=== PATIENT | female | born 1955 | race Caucasian/White ===

== ENCOUNTER → 2017-01-28 | Outpatient (CLI) | payer BC ==
[~2017-01-28] MED LIST: AMLO-110 PO; ASPEC81 PO; B CO PO; CALCITRIOL PO; CHOL1000 PO; CLTP PO; FERR325T51 PO; LUTE10TA PO; METO-452 PO; SEVE800T7 PO; SODI650T8 PO; VENL150C56 PO; [UNRECOGNIZED DRUG - OTHER] PO
--- NOTE | 2017-01-28 10:37 | DIAGNOSTIC IMAGING REPORT ---
MRA OF THE INTRACRANIAL CIRCULATION WITHOUT CONTRAST CLINICAL HISTORY: Cerebral aneurysm. COMPARISON STUDY: MRA a March 09, 2016. TECHNIQUE: Utilizing a 1.5 Nany magnet and 3-D [id number] technique, unenhanced MRA of the intracranial circulation was obtained. FINDINGS: The bilateral M1, M2, A1 and A2 segments are patent. A 3 mm outpouching arising from the left M1 segment is unchanged since prior exam. 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 No additional intracranial aneurysms are identified. As before, the left vertebral artery is ectatic. This is unchanged. The posterior circulation is intact. IMPRESSION: 1. No significant change since prior exam. 2. Stable dilatation of the left middle cerebral artery at the level of the trifurcation, measuring 5 mm. 3. Stable 3 mm outpouching arising from the left M1 segment. This could reflect a small stable aneurysm or ectatic branch. Electronically signed by: Sukhwinder Reyes M.D. 01/28/2017 10:35 AM Dictated Date/Time: 01/28/2017 10:28 AM
== END | disposition home or self-care (01) ==
LOC: C.MRI 08:09
PROVIDERS: ATTEND Transplant Surgery
DX: I67.1 Cerebral aneurysm, nonruptured (principal); N18.6 End stage renal disease

== ENCOUNTER → 2017-02-26 | Outpatient (CLI) | payer BC | END | disposition home or self-care (01) | LOC: C.PAPS 10:04 | PROVIDERS: ATTEND Obstetrics & Gynecology | DX: Z01.419 Encounter for gynecological examination (general) (routine) without abnormal findings (principal) ==

== ENCOUNTER → 2017-03-10 | Outpatient (CLI) | payer BC, OTHER ==
--- NOTE | 2017-03-10 16:03 | DIAGNOSTIC IMAGING REPORT ---
CHEST 2 VIEWS ROUTINE CLINICAL HISTORY: N18.6 AWAITING KIDNEY TRANSPLANT. COMPARISON STUDY: 09/24/2013 FINDINGS: The cardiac and mediastinal contours are normal. There is no evidence of focal pulmonary consolidation. There is no evidence of failure. No pleural effusions are visualized.[ IMPRESSION: No active disease in the chest. Electronically signed by: Rai Devine M.D. 03/10/2017 4:01 PM Dictated Date/Time: 03/10/2017 4:01 PM
--- NOTE | 2017-03-10 16:15 | DIAGNOSTIC IMAGING REPORT ---
ABDOMEN AND PELVIS CT WITHOUT CONTRAST CT DOSE: 413.67 mGy.cm HISTORY: Polycystic kidney disease. TECHNIQUE: Multiaxial CT images of the abdomen and pelvis were performed without contrast. COMPARISON STUDY: Abdomen and pelvis CT 03/24/2015. FINDINGS: The lung bases are essentially clear. No pneumoperitoneum. No pneumatosis. No suspicious lytic or blastic osseous lesions. There again noted an hepatic and renal lesions. The majority of these are hypodense. This is consistent with the patient's history of polycystic kidney disease. There are few scattered small hyperdense lesions within the kidneys which favor hyperdense cysts. The majority of the renal cysts have decreased in size resulting in decrease in size of the kidneys. Dominant right renal cyst measures 3.8 cm, previous measuring 5.0 cm. Dominant left renal cyst measures 3.9 cm, previous measuring 4.2 cm. No hydronephrosis. Some of these cystic lesions within the liver and kidneys demonstrate calcification. The unenhanced spleen, adrenal glands, and pancreas are unremarkable. No retroperitoneal lymphadenopathy. Small to moderate ascites is not significantly changed. There is a left lower quadrant peritoneal dialysis catheter which terminates within the left midabdomen. The uterus is surgically absent. The bladder is completely decompressed and not well visualized. Suboptimal evaluation for bowel pathology due to the lack of intravenous and oral contrast. However, there is no definite bowel wall thickening or obstruction. Colonic diverticulosis. IMPRESSION: 1. Above findings consistent with the patient's history of polycystic kidney disease. The majority of the renal cysts have slightly decreased in size resulting in overall decrease in size of the kidneys. Multiple hepatic cysts are not significantly changed. 2. Small to moderate ascites, unchanged. Left peritoneal dialysis catheter terminates in the left midabdomen. 3. Colonic diverticulosis. Electronically signed by: Jaswant Justice M.D. 03/10/2017 4:14 PM Dictated Date/Time: 03/10/2017 4:05 PM
== END | disposition home or self-care (01) ==
LOC: C.CTS 15:10
PROVIDERS: ATTEND Transplant Surgery
DX: N18.6 End stage renal disease (principal); K76.89 Other specified diseases of liver; R18.8 Other ascites; Z98.890 Other specified postprocedural states; K57.30 Diverticulosis of large intestine without perforation or abscess without bleeding

== ENCOUNTER → 2017-03-11 | Outpatient (CLI) | payer BC ==
--- NOTE | 2017-03-11 15:54 | MAMMOGRAPHY REPORT ---
BILATERAL DIGITAL SCREENING MAMMOGRAM TOMOSYNTHESIS WITH CAD: 03/11/2017 CLINICAL HISTORY: Routine screening. Patient has no complaints. TECHNIQUE: Breast tomosynthesis in addition to standard 2D mammography was performed. Current study was also evaluated with a Computer Aided Detection (CAD) system. COMPARISON: Comparison is made to exams dated: 03/07/2016 mammogram, 02/24/2015 mammogram, 12/01/2013 ma mmogram, 11/18/2012 mammogram, 09/26/2011 mammogram, and 07/12/2010 mammogram - [facility] nter. BREAST COMPOSITION: There are scattered areas of fibroglandular density in both breasts. FINDINGS: There is continued coarsening of a grouping of calcifications in the upper outer posterior left breast, suggesting benignity. No new suspicious mass, architectural distortion or cluster of mi crocalcifications is seen. IMPRESSION: ACR BI-RADS CATEGORY 1: NEGATIVE There is no mammographic evidence of malignancy. A 1 year screening mammogram is recommended. The pa tient will receive written notification of the results. Approximately 10% of breast cancers are not detected with mammography. A negative mammographic report should not delay biopsy if a clinically suggestive mass is present. Katt Jarrett M.D. ay/:03/11/2017 14:09:44 Accountant Certified Public: Maggie Olsen, [facility] letter sent: Normal 1/2 BI-RADS Code: ACR BI-RADS Category 1: Negative
== END ==
LOC: C.MAMM 13:10
PROVIDERS: ATTEND Internal Medicine
DX: Z12.31 Encounter for screening mammogram for malignant neoplasm of breast (principal)

== ENCOUNTER → 2017-06-02 | Outpatient (CLI) | payer BC ==
[~2017-06-02] MED LIST changes: -METO-452 PO; +METO1TAB66 PO
[2017-06-02 14:05] LABS: ALKALINE PHOSPHATASE 77 U/L (45-117); ALT/SGPT 43 U/L (12-78); AST/SGOT 24 U/L (15-37); BLOOD UREA NITROGEN 61 mg/dl (7-18); BUN/CREATININE RATIO 7.8 (10-20); CALCIUM 8.3 mg/dl (8.5-10.1); CARBON DIOXIDE 27 mmol/L (21-32); CHLORIDE 101 mmol/L (98-107); GLUCOSE 132 mg/dl (70-99); POTASSIUM 4.1 mmol/L (3.5-5.1); SODIUM 138 mmol/L (136-145)
== END | disposition home or self-care (01) ==
LOC: C.LABSPEC 12:51
PROVIDERS: ATTEND Internal Medicine
DX: N18.6 End stage renal disease (principal); I13.11 Hypertensive heart and chronic kidney disease without heart failure, with stage 5 chronic kidney disease, or end stage renal disease

== ENCOUNTER → 2017-06-30 | Outpatient (CLI) | payer BC ==
[2017-06-30 13:32] LABS: ALB/GLOB RATIO 0.8 (0.9-2); ALKALINE PHOSPHATASE 135 U/L (45-117); ALT/SGPT 22 U/L (12-78); AST/SGOT 19 U/L (15-37); BLOOD UREA NITROGEN 42 mg/dl (7-18); BUN/CREATININE RATIO 4.9 (10-20); CALCIUM 8.4 mg/dl (8.5-10.1); CARBON DIOXIDE 27 mmol/L (21-32); CHLORIDE 97 mmol/L (98-107); GLUCOSE 104 mg/dl (70-99); PHOSPHORUS 4.6 mg/dl (2.5-4.9); POTASSIUM 4.1 mmol/L (3.5-5.1); SODIUM 133 mmol/L (136-145)
== END | disposition home or self-care (01) ==
LOC: C.LABSPEC 12:18
PROVIDERS: ATTEND Internal Medicine
DX: R53.83 Other fatigue (principal); N18.6 End stage renal disease

== ENCOUNTER → 2017-09-19 | Outpatient (CLI) | payer BC ==
[~2017-09-19] MED LIST changes: -AMLO-110 PO; +AMLO5TAB3 PO; +ASPI325T39 PO; +CLON0.2T PO; +CLOT10TR2 MT; +CTP/1 PO; +FURO-85 PO; +FURO40TA3 PO; +HYDR-3419 PO; +INSU100I23 SQ; +LABE1TAB28 PO; +MAGNTAB4 PO; +METO-452 PO; -METO1TAB66 PO; +METO50TA16 PO; +MPRUDL PO; +MULT-506 PO; +MYC10 PO; +MYCO180T PO; +NVLG SQ; +NXM/40 PO; +POTTAB2 PO; +PRED-301 PO; +TACR0.5C3 PO; +TACR1CAP PO; +TACR1CAP5 PO; +VANC1SUS PO; +VLC450 PO
[2017-09-19 17:41] LABS: BASO % 0.6 %; BASO ABS # 0.05 K/uL (0-0.2); EOS % 1.1 %; HEMATOCRIT 34.1 % (37-47); IG# 0.05 K/uL (0.00-0.02); LYMPH % 3.3 %; MEAN CELL VOLUME 91.7 fL (80-100); MEAN CORPUSCULAR HEMOGLOBIN 29.6 pg (25-34); MEAN CORPUSCULAR HGB CONC 32.3 g/dl (32-36); MONO ABS # 0.18 K/uL (0.11-0.59); NEUT % 92.4 %; NEUT ABS # 8.41 K/uL (1.4-6.5); PLATELET COUNT 244 K/uL (130-400); RED CELL DISTRIBUTION WIDTH CV 18.7 % (11.5-14.5); RED CELL DISTRIBUTION WIDTH SD 61.5 fL (36.4-46.3); WHITE BLOOD COUNT 9.09 K/uL (4.8-10.8)
[2017-09-19 18:08] LABS: ALBUMIN 2.9 gm/dl (3.4-5.0); ALKALINE PHOSPHATASE 166 U/L (45-117); ALT/SGPT 26 U/L (12-78); AST/SGOT 20 U/L (15-37); BLOOD UREA NITROGEN 38 mg/dl (7-18); CALCIUM 7.9 mg/dl (8.5-10.1); CARBON DIOXIDE 18 mmol/L (21-32); GLUCOSE 227 mg/dl (70-99); PHOSPHORUS 3.2 mg/dl (2.5-4.9); POTASSIUM 4.7 mmol/L (3.5-5.1); SODIUM 135 mmol/L (136-145); TOTAL PROTEIN 5.7 gm/dl (6.4-8.2)
== END | disposition home or self-care (01) ==
LOC: C.LAB 16:57
PROVIDERS: ATTEND Internal Medicine
DX: I10 Essential (primary) hypertension (principal); Z94.0 Kidney transplant status; D64.9 Anemia, unspecified

== ENCOUNTER → 2017-09-20 | Outpatient (CLI) | payer BC ==
[2017-09-20 15:19] LABS: BLOOD UREA NITROGEN 41 mg/dl (7-18); CALCIUM 8.2 mg/dl (8.5-10.1); CARBON DIOXIDE 20 mmol/L (21-32); CREATININE 2.38 mg/dl (0.60-1.20); GLUCOSE 192 mg/dl (70-99); SODIUM 133 mmol/L (136-145)
== END | disposition home or self-care (01) ==
LOC: C.LABSPEC 12:34
PROVIDERS: ATTEND Internal Medicine
DX: I12.9 Hypertensive chronic kidney disease with stage 1 through stage 4 chronic kidney disease, or unspecified chronic kidney disease (principal); N18.9 Chronic kidney disease, unspecified; Z94.0 Kidney transplant status

== ENCOUNTER → 2017-11-04 | Day surgery (SDC) | payer BC, OTHER ==
[2017-10-31 15:40] VITALS: BMI 25.0
[~2017-11-04] VITALS: Ht 167.6 cm; Wt 70.5 kg
[~2017-11-04] MED LIST changes: -AMLO5TAB3 PO; -ASPEC81 PO; +ATROPINE SULFATE 0.1 MG/ML 5ML SYR IV PRN; -B CO PO; +BACITRACIN 50000 UNIT VIAL ONE; -CALCITRIOL PO; +CEFAZOLIN SOD 1 GM VIAL ONE; -CHOL1000 PO; -CLOT10TR2 MT; -CLTP PO; -CTP/1 PO; +EpHEDrine SULFATE INJ 50 MG/ML AMP IV PRN; +FENTANYL CITRATE INJ 50 MCG/1 ML 2 ML VIAL IV PRN; +FENTANYL CITRATE INJ 50 MCG/1 ML 2 ML VIAL ONE; -FERR325T51 PO; -FURO40TA3 PO; +HYDROCODONE/ACETAMIN 5/325MG TAB PO PRN; +HYDROmorphone INJ 0.5 MG/0.5 ML SYR IV PRN; -INSU100I23 SQ; -LABE1TAB28 PO; +LACTATED RINGER'S 1000ML 1,000 ML IV SCH; +LIDOCAINE HCL 1% 20 ML VIAL ONE; +LIDOCAINE HCL 2% 2 ML VIAL (20MG/ML) ONE; -MAGNTAB4 PO; -METO-452 PO; +MIDAZOLAM HCL 1 MG/ML 2ML VIAL ONE; +MoRPHine SULFATE 2 MG/ML CARP IV PRN; +ONDANSETRON INJ 2 MG/ML 2 ML VIAL IV PRN; +PHENYLEPHRINE 100MCG/ML 5ML SYR IV PRN; -POTTAB2 PO; +PROPOFOL IV EMULSION 10 MG/ML 20 ML VIAL IV ONE; -SEVE800T7 PO; -TACR1CAP PO; -TACR1CAP5 PO; -VANC1SUS PO; -[UNRECOGNIZED DRUG - OTHER] PO
[2017-11-04 05:55] VITALS: BP 166/98; PULSE 61; TEMP 37.3; O2SAT 99; Ht 167.6 cm; Wt 70.5 kg
--- NOTE | 2017-11-04 06:24 | History & Physical Bridge Note ---
H&P Re-Evaluation Bridge Note: I have examined the patient, reviewed the History & Physical and in the interval since the performance of the History & Physical I have noted the following changes of clinical significance: No changes noted at bedside all questions answered
--- NOTE | 2017-11-04 07:28 | Discharge Instructions ---
Discharge Instructions Date of Service Nov 04, 2017. Visit Reason for Visit: Poor Venous Access Discharge Discharge Diagnosis / Problem: A-port placement Discharge Goals Goal(s): Therapeutic intervention Activity Recommendations Activity Limitations: as noted below Shower/Bathe: tomorrow Anesthesia . Post Anesthesia Instructions: If you have had General Anesthesia or IV Sedation: * Do not drive today. * Resume driving when surgeon permits. * Do not make important decisions or sign legal documents today. * Call surgeon for: 1. Temperature elevations greater than 101 degrees F. 2. Uncontrollable pain. 3. Excessive bleeding. 4. Persistent nausea and vomiting. 5. Medication intolerance (nausea, vomiting or rash). * For nausea and vomiting use only clear liquids such as: tea, soda, bouillon until nausea subsides, then gradually increase diet as tolerated. * If you have any concerns or questions, call your surgeon's office. If physician is unavailable and it is an emergency, call 911 or go to the nearest emergency room. . Instructions / Follow-Up Instructions / Follow-Up Dr. Monique in 1-2 weeks as needed, call [phone] for any questions or concerns Diet Recommendations Recommended Home Diet: no limitations Pending Studies Studies pending at discharge: no Medical Emergencies . Who to Call and When: Medical Emergencies: If at any time you feel your situation is an emergency, please call 911 immediately. . Non-Emergent Contact Non-Emergency issues call your: Surgeon Call Non-Emergent contact if: you have a fever, temperature is above 101.5, your pain is not controlled, wound has increased redness, wound has increased pain . . "Provider Documentation" section prepared by Mian Nolan. . [place] Drug Monitoring Program Search Results: no issues identified
--- NOTE | 2017-11-04 07:46 | [facility] Post Operative Brief Note ---
Immediate Operative Summary Operative Date Nov 04, 2017. Pre-Operative Diagnosis Status Post Renal Transplant, Need for Frequent Intravenous Access Post-Operative Diagnosis Status Post Renal Transplant, Need for Frequent Intravenous Access Procedure(s) Performed Insertion of Infusaport Left Subclavian Surgeon Dr. Monique Supervisor Incising Surgeon(s) none Estimated Blood Loss 5 ml Findings Consistent with Post-Op Diagnosis Specimens none per surgeon Anesthesia Type MAC
--- NOTE | 2017-11-04 08:19 | DIAGNOSTIC IMAGING REPORT ---
CHEST ONE VIEW PORTABLE CLINICAL HISTORY: Port placement. COMPARISON STUDY: Chest radiograph March 10, 2017. FINDINGS: Note is made of interval placement of a left subclavian [id number]. Catheter tip projects over the cavoatrial junction. The catheter is intact and there is no pneumothorax. Lung volumes are diminished. There is no evidence for pulmonary edema. Cardiomediastinal silhouette is unremarkable. IMPRESSION: No pneumothorax following placement of a left subclavian [id number]. Electronically signed by: Sukhwinder Reyes M.D. 11/04/2017 8:17 AM Dictated Date/Time: 11/04/2017 8:16 AM
--- NOTE | 2017-11-04 08:33 | Anesthesiology Progress Note ---
Anesthesia Post Op Note Date & Time Nov 04, 2017 at 08:33 Vital Signs Pain Intensity: 0 Vital Signs Past 12 Hours Date Time Temp Pulse Resp B/P (MAP) Pulse Ox O2 Delivery O2 Flow Rate FiO2 11/04/17 08:27 74 18 11/04/17 08:27 77 18 96 11/04/17 08:26 138/94 11/04/17 08:22 67 17 95 11/04/17 08:22 66 17 11/04/17 08:21 138/78 11/04/17 08:17 64 16 95 11/04/17 08:17 64 16 11/04/17 08:16 128/81 11/04/17 08:12 70 21 11/04/17 08:12 70 21 97 11/04/17 08:11 146/84 11/04/17 08:11 146/84 11/04/17 08:10 67 15 97 11/04/17 08:10 67 15 97 11/04/17 08:10 67 15 11/04/17 08:10 67 15 11/04/17 08:06 151/83 11/04/17 08:06 151/83 11/04/17 08:05 71 18 11/04/17 08:05 71 18 11/04/17 08:05 70 18 96 11/04/17 08:05 70 18 96 11/04/17 08:01 148/86 11/04/17 08:01 148/86 11/04/17 08:00 65 15 11/04/17 08:00 65 15 97 11/04/17 08:00 65 15 97 11/04/17 08:00 36.8 64 18 135/78 (90) 95 Room Air 10 Oxymask 11/04/17 08:00 65 15 11/04/17 07:56 123/73 123/73 11/04/17 07:56 123/73 123/73 11/04/17 07:55 67 26 96 11/04/17 07:55 66 26 11/04/17 07:55 66 26 11/04/17 07:55 67 26 96 11/04/17 07:51 135/78 11/04/17 07:51 135/78 11/04/17 05:55 37.3 61 18 166/98 (120) 99 Room Air Notes Mental Status: alert / awake / arousable, participated in evaluation Pt Amnestic to Procedure: Yes Nausea / Vomiting: adequately controlled Pain: adequately controlled Airway Patency, RR, SpO2: stable & adequate BP & HR: stable & adequate Hydration State: stable & adequate Anesthetic Complications: no major complications apparent Awake, doing well, no complaints. VSS.
[2017-11-04 08:35] VITALS: BP 145/73; PULSE 71; TEMP 36.3; O2SAT 97
[2017-11-04 09:06] VITALS: BP 138/78; PULSE 79; O2SAT 96
[2017-11-04 09:28] VITALS: BP 134/73; PULSE 84; TEMP 36.5; O2SAT 97
--- NOTE | 2017-11-04 13:37 | OPERATIVE REPORT ---
DATE OF OPERATION: 11/04/2017 SURGEON: Gage Monique MD. PREOPERATIVE DIAGNOSIS: Lack of venous access, status post renal transplant. POSTOPERATIVE DIAGNOSIS: Same. PROCEDURE: MRI compatible port placed to the left subclavian. SUMMARY: The patient was brought into the operating room. A roll was placed underneath her shoulders. Systemic antibiotics was given. IV sedation was given so she was incoherent of what was going on as requested. Local anesthetic was used to infiltrate at the angle of the clavicle. The patient had significant edema in the subcutaneous tissue, we can appreciate it. We accessed the subclavian vein without any difficulty. Fluoroscopically positioned the guidewire in superior vena cava. At this point, we then made an incision about an inch and a half below the puncture site in the subclavian area and using more local anesthetic deep into the subcutaneous tissue. As stated, she had significant edema and the tissue was very frail due to her systemic steroids and renal state. We then done sufficient enough that we created an inferior pocket for the reservoir. We did not use the electrocautery underneath the flap. We did use it though at 25 just to get some bleeders which she tends to ooze quite easily. Once the pocket was created, we then tested the port in that area and appeared to be satisfactory. We at this point then worked on superiorly to dissect out underneath and placed the guidewire through the open incision. The patient was then placed in Trendelenburg position. We reimaged the guidewire which was in the superior vena cava right atrium. We then placed a 7-Swedish introducer when the patient was in Trendelenburg position and placed the catheter through the introducer peel away and on imaging we saw that the catheter was in the right atrial area. At this point, we measured on the skin edge and appeared to be about 25 cm. We then cut the catheter, placing the black bolster on it and then placed it on reservoir, secured a black bolster. We then placed the reservoir in the previously made pocket, suturing it ____. This was done with 3-0 nylon suture. The area was then checked for hemostasis and appeared satisfactory. There was no kinking in the system. We reimaged the whole system without any problem. We had aspirated and flushed prior to placing the reservoir in the pocket without any difficulty. We then closed the wound in multiple layers of 3-0 and 2-0 Dexon and 4-0 Monocryl. Prior to leaving the room, we reimaged the system. The catheter was in the superior vena cava right atrial area. We aspirated and flushed percutaneously without any difficulty. As stated, the patient bruised quite easily at the inferior flap where we had created the pocket for the reservoir. We did not denude a significant amount of fat, but it did have area of ecchymosis. Steri-Strips were applied, 2 x 2 and Op-Site applied. The procedure was tolerated well by the patient and was taken to recovery in good condition. I attest to the content of the Intraoperative Record and any orders documented therein. Any exception s are noted below.
== END | disposition home or self-care (01) ==
LOC: C.ACU 05:21
PROVIDERS: ATTEND Surgery
DX: Z45.2 Encounter for adjustment and management of vascular access device (principal); Z94.0 Kidney transplant status; N18.6 End stage renal disease; E11.22 Type 2 diabetes mellitus with diabetic chronic kidney disease; Z79.52 Long term (current) use of systemic steroids; I12.0 Hypertensive chronic kidney disease with stage 5 chronic kidney disease or end stage renal disease; Z86.711 Personal history of pulmonary embolism; F32.9 Major depressive disorder, single episode, unspecified; Z98.890 Other specified postprocedural states; Z88.1 Allergy status to other antibiotic agents; Z88.2 Allergy status to sulfonamides; Z90.89 Acquired absence of other organs; Z90.710 Acquired absence of both cervix and uterus; Z82.49 Family history of ischemic heart disease and other diseases of the circulatory system; Z82.71 Family history of polycystic kidney; Z83.518 Family history of other specified eye disorder; Z82.0 Family history of epilepsy and other diseases of the nervous system; Z84.1 Family history of disorders of kidney and ureter

== ENCOUNTER → 2017-12-05 | Outpatient (CLI) | payer OTHER ==
[~2017-12-05] MED LIST changes: -ATROPINE SULFATE 0.1 MG/ML 5ML SYR IV PRN; -BACITRACIN 50000 UNIT VIAL ONE; -CEFAZOLIN SOD 1 GM VIAL ONE; -EpHEDrine SULFATE INJ 50 MG/ML AMP IV PRN; -FENTANYL CITRATE INJ 50 MCG/1 ML 2 ML VIAL IV PRN; -FENTANYL CITRATE INJ 50 MCG/1 ML 2 ML VIAL ONE; -HYDR-3419 PO; -HYDROCODONE/ACETAMIN 5/325MG TAB PO PRN; -HYDROmorphone INJ 0.5 MG/0.5 ML SYR IV PRN; -LACTATED RINGER'S 1000ML 1,000 ML IV SCH; -LIDOCAINE HCL 1% 20 ML VIAL ONE; -LIDOCAINE HCL 2% 2 ML VIAL (20MG/ML) ONE; -MIDAZOLAM HCL 1 MG/ML 2ML VIAL ONE; -MoRPHine SULFATE 2 MG/ML CARP IV PRN; -ONDANSETRON INJ 2 MG/ML 2 ML VIAL IV PRN; -PHENYLEPHRINE 100MCG/ML 5ML SYR IV PRN; -PROPOFOL IV EMULSION 10 MG/ML 20 ML VIAL IV ONE
[2017-12-05 18:43] LABS: HEMOGLOBIN 11.1 g/dL (12.0-16.0); MEAN CELL VOLUME 88.2 fL (80-100); MEAN CORPUSCULAR HGB CONC 31.7 g/dl (32-36); MEAN PLATELET VOLUME 10.4 fL (7.4-10.4); PLATELET COUNT 255 K/uL (130-400); RED CELL DISTRIBUTION WIDTH SD 54.8 fL (36.4-46.3)
== END | disposition home or self-care (01) ==
LOC: C.LABSPEC 17:49
PROVIDERS: ATTEND Internal Medicine
DX: D72.819 Decreased white blood cell count, unspecified (principal)

== ENCOUNTER → 2017-12-07 | Outpatient (CLI) | payer OTHER ==
[2017-12-07 12:43] LABS: BASO % 1.2 %; BASO ABS # 0.04 K/uL (0-0.2); EOS % 3.5 %; EOS ABS # 0.12 K/uL (0-0.5); HEMATOCRIT 36.8 % (37-47); HEMOGLOBIN 11.2 g/dL (12.0-16.0); IG# 0.01 K/uL (0.00-0.02); LYMPH % 16.1 %; LYMPH ABS # 0.55 K/uL (1.2-3.4); MEAN CORPUSCULAR HEMOGLOBIN 26.8 pg (25-34); MEAN CORPUSCULAR HGB CONC 30.4 g/dl (32-36); MEAN PLATELET VOLUME 10.9 fL (7.4-10.4); MONO % 17.6 %; NEUT % 61.3 %; NEUT ABS # 2.09 K/uL (1.4-6.5); NUCLEATED RED BLOOD CELL ABS 0.02 K/uL (0-0); PLATELET COUNT 284 K/uL (130-400); RED CELL DISTRIBUTION WIDTH CV 16.6 % (11.5-14.5); RED CELL DISTRIBUTION WIDTH SD 54.4 fL (36.4-46.3); WHITE BLOOD COUNT 3.41 K/uL (4.8-10.8)
[2017-12-08 07:03] LABS: HEMOGLOBIN A1C 7.4 % (4.5-5.6)
== END | disposition home or self-care (01) ==
LOC: C.LABSPEC 10:03
PROVIDERS: ATTEND Internal Medicine
DX: D72.819 Decreased white blood cell count, unspecified (principal); R73.9 Hyperglycemia, unspecified

== ENCOUNTER → 2017-12-29 | Outpatient (CLI) | payer OTHER ==
[~2017-12-29] MED LIST changes: +ACETAMINOPHEN 325 MG TAB ONE; +CLOT10TR2 MT; +CTP/1 PO; +FURO40TA3 PO; +MAGNTAB4 PO; +POTTAB2 PO; +TACR1CAP5 PO; +VANC1SUS PO
[2017-12-29 10:24] LABS: BASO % 0.1 %; BASO ABS # 0.02 K/uL (0-0.2); EOS % 0.1 %; EOS ABS # 0.01 K/uL (0-0.5); HEMATOCRIT 34.1 % (37-47); HEMOGLOBIN 10.6 g/dL (12.0-16.0); IG# 0.05 K/uL (0.00-0.02); LYMPH % 2.9 %; LYMPH ABS # 0.42 K/uL (1.2-3.4); MEAN CELL VOLUME 85.3 fL (80-100); MEAN CORPUSCULAR HEMOGLOBIN 26.5 pg (25-34); MEAN CORPUSCULAR HGB CONC 31.1 g/dl (32-36); MEAN PLATELET VOLUME 10.7 fL (7.4-10.4); MONO % 7.6 %; MONO ABS # 1.09 K/uL (0.11-0.59); NEUT % 88.9 %; NEUT ABS # 12.66 K/uL (1.4-6.5); NUCLEATED RED BLOOD CELL ABS 0.02 K/uL (0-0); PLATELET COUNT 278 K/uL (130-400); RED CELL DISTRIBUTION WIDTH CV 15.8 % (11.5-14.5); RED CELL DISTRIBUTION WIDTH SD 49.9 fL (36.4-46.3); WHITE BLOOD COUNT 14.25 K/uL (4.8-10.8)
[2017-12-29 10:49] LABS: ALBUMIN 3.2 gm/dl (3.4-5.0); ALT/SGPT 32 U/L (12-78); AST/SGOT 17 U/L (15-37); BLOOD UREA NITROGEN 18 mg/dl (7-18); CALCIUM 9.8 mg/dl (8.5-10.1); CARBON DIOXIDE 20 mmol/L (21-32); CREATININE 1.01 mg/dl (0.60-1.20); GLUCOSE 197 mg/dl (70-99); POTASSIUM 4.4 mmol/L (3.5-5.1); SODIUM 133 mmol/L (136-145)
[2017-12-29 10:51] LABS: ALKALINE PHOSPHATASE 137 U/L (45-117); PHOSPHORUS 1.8 mg/dl (2.5-4.9); TOTAL PROTEIN 6.1 gm/dl (6.4-8.2)
--- NOTE | 2017-12-29 11:44 | DIAGNOSTIC IMAGING REPORT ---
CHEST 2 VIEWS ROUTINE CLINICAL HISTORY: FEVER,POST KIDNEY TRANSPLANT COMPARISON STUDY: Chest radiograph November 04, 2017. FINDINGS: A left subclavian [id number] in place. There is no pneumothorax. There are trace bilateral pleural effusions. There is no consolidation to suggest pneumonia. Pulmonary vascularity is normal. Cardiomediastinal silhouette is normal. There is suspected mild biapical scarring which is unchanged. IMPRESSION: 1. No consolidation to suggest pneumonia. 2. Trace bilateral pleural effusions. 3. No evidence for pulmonary edema. Electronically signed by: Sukhwinder Reyes M.D. 12/29/2017 11:43 AM Dictated Date/Time: 12/29/2017 11:40 AM
== END | disposition home or self-care (01) ==
LOC: C.RAD 09:32
PROVIDERS: ATTEND Internal Medicine
DX: R50.9 Fever, unspecified (principal); Z94.0 Kidney transplant status

== ENCOUNTER → 2018-01-25 | Outpatient (CLI) | payer OTHER ==
[~2018-01-25] MED LIST changes: -ACETAMINOPHEN 325 MG TAB ONE; -CLON0.2T PO; -FURO-85 PO; +LABE1TAB28 PO; -METO50TA16 PO; -MYC10 PO; -TACR0.5C3 PO; -VLC450 PO
[2018-01-25 11:22] LABS: BLOOD UREA NITROGEN 26 mg/dl (7-18); CALCIUM 9.1 mg/dl (8.5-10.1); CARBON DIOXIDE 21 mmol/L (21-32); CREATININE 1.14 mg/dl (0.60-1.20); GLUCOSE 126 mg/dl (70-99); POTASSIUM 4.5 mmol/L (3.5-5.1); SODIUM 141 mmol/L (136-145)
[2018-01-25 11:42] LABS: HEMOGLOBIN 9.4 g/dL (12.0-16.0); MEAN CELL VOLUME 81.2 fL (80-100); MEAN CORPUSCULAR HEMOGLOBIN 23.9 pg (25-34); MEAN CORPUSCULAR HGB CONC 29.4 g/dl (32-36); MEAN PLATELET VOLUME 9.7 fL (7.4-10.4); PLATELET COUNT 368 K/uL (130-400); RED CELL DISTRIBUTION WIDTH CV 16.9 % (11.5-14.5); RED CELL DISTRIBUTION WIDTH SD 50.9 fL (36.4-46.3); WHITE BLOOD COUNT 7.14 K/uL (4.8-10.8)
[2018-01-25 12:00] LABS: BASO % 0.6 %; BASO ABS # 0.04 K/uL (0-0.2); EOS % 1.5 %; EOS ABS # 0.11 K/uL (0-0.5); IG# 0.03 K/uL (0.00-0.02); LYMPH % 24.5 %; LYMPH ABS # 1.75 K/uL (1.2-3.4); MONO % 11.2 %; NEUT % 61.8 %; NEUT ABS # 4.41 K/uL (1.4-6.5)
== END | disposition home or self-care (01) ==
LOC: C.LABSPEC 12:50
PROVIDERS: ATTEND Internal Medicine
DX: E83.42 Hypomagnesemia (principal); D72.819 Decreased white blood cell count, unspecified; Z94.0 Kidney transplant status

== ENCOUNTER → 2018-01-27 | Outpatient (CLI) | payer OTHER ==
[2018-01-27 14:55] LABS: BASO % 0.6 %; BASO ABS # 0.04 K/uL (0-0.2); EOS % 0.9 %; EOS ABS # 0.06 K/uL (0-0.5); HEMATOCRIT 31.3 % (37-47); HEMOGLOBIN 9.3 g/dL (12.0-16.0); IG# 0.02 K/uL (0.00-0.02); LYMPH % 16.9 %; LYMPH ABS # 1.11 K/uL (1.2-3.4); MEAN CELL VOLUME 80.5 fL (80-100); MEAN CORPUSCULAR HEMOGLOBIN 23.9 pg (25-34); MEAN CORPUSCULAR HGB CONC 29.7 g/dl (32-36); MEAN PLATELET VOLUME 9.8 fL (7.4-10.4); MONO % 5.9 %; MONO ABS # 0.39 K/uL (0.11-0.59); NEUT % 75.4 %; NEUT ABS # 4.94 K/uL (1.4-6.5); PLATELET COUNT 419 K/uL (130-400); RED CELL DISTRIBUTION WIDTH CV 16.9 % (11.5-14.5); RED CELL DISTRIBUTION WIDTH SD 49.9 fL (36.4-46.3); WHITE BLOOD COUNT 6.56 K/uL (4.8-10.8)
[2018-01-27 15:16] LABS: BLOOD UREA NITROGEN 27 mg/dl (7-18); CALCIUM 8.8 mg/dl (8.5-10.1); CARBON DIOXIDE 20 mmol/L (21-32); CREATININE 1.12 mg/dl (0.60-1.20); GLUCOSE 129 mg/dl (70-99); POTASSIUM 4.8 mmol/L (3.5-5.1); SODIUM 138 mmol/L (136-145)
== END | disposition home or self-care (01) ==
LOC: C.LAB 14:11
PROVIDERS: ATTEND Internal Medicine
DX: D72.819 Decreased white blood cell count, unspecified (principal); E86.0 Dehydration

== ENCOUNTER → 2018-02-01 | Outpatient (CLI) | payer OTHER ==
[2018-02-01 18:46] LABS: HEMATOCRIT 30.6 % (37-47); MEAN CELL VOLUME 79.9 fL (80-100); MEAN CORPUSCULAR HEMOGLOBIN 23.5 pg (25-34); MEAN CORPUSCULAR HGB CONC 29.4 g/dl (32-36); MEAN PLATELET VOLUME 9.5 fL (7.4-10.4); PLATELET COUNT 390 K/uL (130-400); RED CELL DISTRIBUTION WIDTH CV 17.1 % (11.5-14.5); RED CELL DISTRIBUTION WIDTH SD 50.3 fL (36.4-46.3); WHITE BLOOD COUNT 8.56 K/uL (4.8-10.8)
[2018-02-01 19:07] LABS: BASO % 0.2 %; BASO ABS # 0.02 K/uL (0-0.2); EOS % 0.1 %; EOS ABS # 0.01 K/uL (0-0.5); IG# 0.02 K/uL (0.00-0.02); LYMPH ABS # 0.94 K/uL (1.2-3.4); MONO % 1.4 %; MONO ABS # 0.12 K/uL (0.11-0.59); NEUT % 87.1 %; NEUT ABS # 7.45 K/uL (1.4-6.5)
== END | disposition home or self-care (01) ==
LOC: C.LABSPEC 10:37
PROVIDERS: ATTEND Internal Medicine
DX: D72.819 Decreased white blood cell count, unspecified (principal)